=== PATIENT | male | born 1960 | race African-American/Black ===

== ENCOUNTER 2022-10-29 18:17 | Inpatient (IN) | payer MEDICARE ==
[~2022-10-29] VITALS: Ht 167.6 cm; Wt 54.0 kg
[2022-10-29] MEDS ORDERED: ONDANSETRON HCL INJ 2MG/ML 2ML 2 MG/ML VIAL ONE (18:46)
[2022-10-29] MEDS ORDERED: SODIUM CHLORIDE 0.9% 1000ML 1,000 ML ONE (18:46)
[2022-10-29] MEDS ORDERED: METOPROLOL TARTRATE INJ 1 MG/ML VIAL ONE ×2 (18:49→18:53)
[2022-10-29] MEDS ORDERED: ASPIRIN 81 MG CHEW TAB ONE (18:49)
[2022-10-29] MEDS ORDERED: LORAZEPAM INJ 2 MG/ML VIAL ONE (18:49)
[2022-10-29] MEDS ORDERED: FAMOTIDINE 20 MG/2 ML VIAL IV ONE (18:50)
[2022-10-29] MEDS ORDERED: FAMOTIDINE 20 MG/2 ML VIAL IV STA (18:56)
[2022-10-29] MEDS ORDERED: ASPIRIN 325 MG TAB PO ONE (19:00)
[2022-10-29] MEDS ORDERED: SODIUM CHLORIDE 0.9% 1000ML 1,000 ML IV SCH (19:00)
[2022-10-29] MEDS ORDERED: ONDANSETRON HCL INJ 2MG/ML 2ML 2 MG/ML VIAL IV STA (19:09)
[2022-10-29] MEDS ORDERED: LORAZEPAM INJ 2 MG/ML VIAL IV ONE (19:15)
[2022-10-29] MEDS ORDERED: METOPROLOL TARTRATE INJ 1 MG/ML VIAL IV ONE (19:15)
[2022-10-29] MEDS ORDERED: NICARDIPINE 20MG/200ML PREMIX 200 ML ONE (20:17)
[2022-10-29] MEDS ORDERED: NICARDIPINE 20MG/200ML PREMIX 200 ML IV SCH (20:30)
[2022-10-29] MEDS ORDERED: IOPAMIDOL 370 MG/ML 100 ML INFUS..BTL INJ ONE (20:56)
[2022-10-29] MEDS ORDERED: ONDANSETRON HCL INJ 2MG/ML 2ML 2 MG/ML VIAL IV PRN (21:30)
[2022-10-29] MEDS: LORAZEPAM INJ 2 MG/ML VIAL IV SCH (23:38)
[2022-10-29] MEDS: CHLORDIAZEPOXIDE HCL 25 MG CAP PO SCH (23:39)
[2022-10-29] MEDS: SODIUM CHLORIDE 0.9% 1000ML 1,000 ML IV SCH (23:57)
[2022-10-30] VITALS (10 sets, daily range): BP systolic 143–171; BP diastolic 77–94
[2022-10-30] MEDS: LORAZEPAM INJ 2 MG/ML VIAL IV SCH ×4 (05:25→23:46)
[2022-10-30] MEDS: CHLORDIAZEPOXIDE HCL 25 MG CAP PO SCH ×4 (05:25→23:45)
[2022-10-30] MEDS: SODIUM CHLORIDE 0.9% 1000ML 1,000 ML IV SCH ×3 (05:26→20:59)
[2022-10-30] MEDS ORDERED: HYDRALAZINE HCL 20 MG/ML VIAL IV PRN (07:15)
[2022-10-30 07:22] LABS: BASOPHILS # (AUTO) 0.1 (0.0-0.1); BASOPHILS % 0.7 % (0.0-1.0); EOSINOPHILS # (AUTO) 0.1 (0.0-0.4); EOSINOPHILS % 1.3 % (0.0-6.0); HEMATOCRIT 38.7 % (38.2-49.6); HEMOGLOBIN 13.6 g/dL (14.0-18.0); LYMPHOCYTES # (AUTO) 1.4 (1.0-3.2); LYMPHOCYTES % 18.7 % (18.0-39.1); MEAN CORPUSCULAR HEMOGLOBIN 33.9 pg (28-32); MEAN CORPUSCULAR HGB CONC 35.1 g/dL (31-35); MEAN CORPUSCULAR VOLUME 96.5 fL (81-99); MONOCYTES # (AUTO) 0.6 (0.2-0.8); MONOCYTES % 8.3 % (4.4-11.3); NEUTROPHILS # (AUTO) 5.4 (2.1-6.9); NEUTROPHILS % 70.9 % (38.7-80.0); PLATELET COUNT 99 x10e3/uL (140-360); RED BLOOD COUNT 4.01 x10e6/uL (4.3-5.7); RED CELL DISTRIBUTION WIDTH 14.3 % (11.7-14.4)
[2022-10-30 07:58] LABS: ALBUMIN 4.2 g/dL (3.5-5.0); ALBUMIN/GLOBULIN RATIO 1.2 (0.8-2.0); ANION GAP 16.7 mmol/L (8-16); CALCIUM 9.4 mg/dL (8.4-10.2); CREATININE, SERUM 0.79 mg/dL (0.72-1.25); POTASSIUM 3.7 mmol/L (3.5-5.1)
[2022-10-30] MEDS: AMLODIPINE BESYLATE 10 MG TAB PO SCH (08:49)
[2022-10-31] VITALS (8 sets, daily range): BP systolic 140–159; BP diastolic 75–91
[2022-10-31] MEDS: CHLORDIAZEPOXIDE HCL 25 MG CAP PO SCH ×3 (05:20→17:22)
[2022-10-31] MEDS: LORAZEPAM INJ 2 MG/ML VIAL IV SCH (05:22)
[2022-10-31 06:15] LABS: BASOPHILS % 0.7 % (0.0-1.0); EOSINOPHILS # (AUTO) 0.3 (0.0-0.4); EOSINOPHILS % 4.5 % (0.0-6.0); HEMATOCRIT 38.2 % (38.2-49.6); HEMOGLOBIN 13.2 g/dL (14.0-18.0); LYMPHOCYTES # (AUTO) 1.2 (1.0-3.2); LYMPHOCYTES % 20.6 % (18.0-39.1); MEAN CORPUSCULAR HEMOGLOBIN 34.3 pg (28-32); MEAN CORPUSCULAR HGB CONC 34.6 g/dL (31-35); MEAN CORPUSCULAR VOLUME 99.2 fL (81-99); MONOCYTES # (AUTO) 0.4 (0.2-0.8); MONOCYTES % 6.4 % (4.4-11.3); NEUTROPHILS % 67.6 % (38.7-80.0); PLATELET COUNT 101 x10e3/uL (140-360); RED BLOOD COUNT 3.85 x10e6/uL (4.3-5.7); RED CELL DISTRIBUTION WIDTH 13.6 % (11.7-14.4)
[2022-10-31] MEDS: SODIUM CHLORIDE 0.9% 1000ML 1,000 ML IV SCH (06:21)
[2022-10-31 06:32] LABS: ALBUMIN 3.7 g/dL (3.5-5.0); ALBUMIN/GLOBULIN RATIO 1.1 (0.8-2.0); ANION GAP 17.3 mmol/L (8-16); CALCIUM 8.7 mg/dL (8.4-10.2); CREATININE, SERUM 0.71 mg/dL (0.72-1.25); POTASSIUM 3.3 mmol/L (3.5-5.1)
[2022-10-31] MEDS: AMLODIPINE BESYLATE 10 MG TAB PO SCH (09:00)
[2022-10-31] MEDS ORDERED: POTASSIUM CHLORIDE 20MEQ/100ML 200 ML IV ONE (09:00)
[2022-10-31] MEDS ORDERED: CHLORDIAZEPOXID25 MG PO (14:20)
[2022-10-31] MEDS: LORAZEPAM INJ 2 MG/ML VIAL IV PRN (22:17)
[2022-11-01] VITALS (7 sets, daily range): BP systolic 117–160; BP diastolic 83–104
[2022-11-01] MEDS: CHLORDIAZEPOXIDE HCL 25 MG CAP PO SCH ×6 (00:48→21:36)
[2022-11-01] MEDS: LORAZEPAM INJ 2 MG/ML VIAL IV PRN ×2 (02:44→21:38)
[2022-11-01 07:18] LABS: BASOPHILS % 0.5 % (0.0-1.0); EOSINOPHILS # (AUTO) 0.2 (0.0-0.4); EOSINOPHILS % 3.4 % (0.0-6.0); HEMATOCRIT 38.7 % (38.2-49.6); HEMOGLOBIN 13.4 g/dL (14.0-18.0); LYMPHOCYTES # (AUTO) 1.3 (1.0-3.2); LYMPHOCYTES % 22.2 % (18.0-39.1); MEAN CORPUSCULAR HGB CONC 34.6 g/dL (31-35); MEAN CORPUSCULAR VOLUME 98.2 fL (81-99); MONOCYTES # (AUTO) 0.4 (0.2-0.8); MONOCYTES % 7.1 % (4.4-11.3); NEUTROPHILS # (AUTO) 3.7 (2.1-6.9); NEUTROPHILS % 66.4 % (38.7-80.0); PLATELET COUNT 119 x10e3/uL (140-360); RED BLOOD COUNT 3.94 x10e6/uL (4.3-5.7); RED CELL DISTRIBUTION WIDTH 13.2 % (11.7-14.4)
[2022-11-01 07:41] LABS: ALBUMIN 3.8 g/dL (3.5-5.0); ANION GAP 16.7 mmol/L (8-16); CALCIUM 9.9 mg/dL (8.4-10.2); CREATININE, SERUM 0.75 mg/dL (0.72-1.25); POTASSIUM 3.7 mmol/L (3.5-5.1)
[2022-11-01] MEDS: AMLODIPINE BESYLATE 10 MG TAB PO SCH (09:12)
[2022-11-02] VITALS (8 sets, daily range): BP systolic 109–130; BP diastolic 75–87
[2022-11-02] MEDS: CHLORDIAZEPOXIDE HCL 25 MG CAP PO SCH ×3 (05:33→16:53)
[2022-11-02 06:27] LABS: BASOPHILS % 0.7 % (0.0-1.0); EOSINOPHILS # (AUTO) 0.3 (0.0-0.4); EOSINOPHILS % 5.1 % (0.0-6.0); HEMATOCRIT 38.2 % (38.2-49.6); HEMOGLOBIN 13.6 g/dL (14.0-18.0); LYMPHOCYTES # (AUTO) 1.5 (1.0-3.2); LYMPHOCYTES % 26.4 % (18.0-39.1); MEAN CORPUSCULAR HEMOGLOBIN 34.1 pg (28-32); MEAN CORPUSCULAR HGB CONC 35.6 g/dL (31-35); MEAN CORPUSCULAR VOLUME 95.7 fL (81-99); MONOCYTES # (AUTO) 0.5 (0.2-0.8); MONOCYTES % 8.9 % (4.4-11.3); NEUTROPHILS # (AUTO) 3.2 (2.1-6.9); NEUTROPHILS % 58.7 % (38.7-80.0); PLATELET COUNT 134 x10e3/uL (140-360); RED BLOOD COUNT 3.99 x10e6/uL (4.3-5.7); RED CELL DISTRIBUTION WIDTH 13.3 % (11.7-14.4)
[2022-11-02 06:45] LABS: ALBUMIN 3.8 g/dL (3.5-5.0); ALBUMIN/GLOBULIN RATIO 1.1 (0.8-2.0); ANION GAP 13.3 mmol/L (8-16); CREATININE, SERUM 0.82 mg/dL (0.72-1.25); POTASSIUM 3.3 mmol/L (3.5-5.1)
[2022-11-02] MEDS: LORAZEPAM INJ 2 MG/ML VIAL IV PRN (07:46)
[2022-11-02] MEDS: AMLODIPINE BESYLATE 10 MG TAB PO SCH (07:46)
[2022-11-02] MEDS ORDERED: POTASSIUM CHLORIDE 20 MEQ TAB CR PO ONE (10:00)
[2022-11-02] MEDS ORDERED: THIAMINE HCL INJ 100 MG/ML 2ML VIAL IV ONE (11:00)
[2022-11-03] VITALS: BP 109/72
[2022-11-03 04:00] VITALS: BP 116/81
[2022-11-03 06:20] LABS: BASOPHILS # (AUTO) 0.1 (0.0-0.1); EOSINOPHILS # (AUTO) 0.3 (0.0-0.4); HEMATOCRIT 37.8 % (38.2-49.6); HEMOGLOBIN 13.6 g/dL (14.0-18.0); LYMPHOCYTES # (AUTO) 1.4 (1.0-3.2); LYMPHOCYTES % 25.7 % (18.0-39.1); MEAN CORPUSCULAR HEMOGLOBIN 35.9 pg (28-32); MEAN CORPUSCULAR VOLUME 99.7 fL (81-99); MONOCYTES # (AUTO) 0.4 (0.2-0.8); MONOCYTES % 7.8 % (4.4-11.3); NEUTROPHILS # (AUTO) 3.2 (2.1-6.9); NEUTROPHILS % 60.1 % (38.7-80.0); PLATELET COUNT 156 x10e3/uL (140-360); RED BLOOD COUNT 3.79 x10e6/uL (4.3-5.7); RED CELL DISTRIBUTION WIDTH 13.7 % (11.7-14.4)
[2022-11-03 06:32] LABS: ANION GAP 13.7 mmol/L (8-16); CALCIUM 10.2 mg/dL (8.4-10.2); CREATININE, SERUM 0.81 mg/dL (0.72-1.25); POTASSIUM 3.7 mmol/L (3.5-5.1)
[2022-11-03 07:03] LABS: MAGNESIUM 1.3 MG/DL (1.3-2.1)
[2022-11-03 08:03] VITALS: BP 114/76
[2022-11-03 08:10] VITALS: BP 114/76
[2022-11-03] MEDS: AMLODIPINE BESYLATE 10 MG TAB PO SCH (08:31)
[2022-11-03] MEDS ORDERED: CHLORDIAZEPOXIDE HCL 25 MG CAP PO SCH (09:00)
[2022-11-03] MEDS ORDERED: VITAMIN B-1100 M1 PO (12:13)
[2022-11-03] MEDS ORDERED: NORVASC10 MG PO (12:13)
[2022-11-03 12:18] VITALS: BP 108/76
[2022-11-03] MEDS ORDERED: ONDANSETRON HCL 4 MG ORAL DISINTEGRATING TAB PO PRN (12:30)
[2022-11-03] MEDS ORDERED: CHLORDIAZEPOXID25 MG PO (17:09)
== END 2022-11-03 13:50 | disposition home or self-care (01) | DRG 897 ==
LOC: FSED 18:27 → ERHOLD 21:32 → OBSVTOIN 21:32 → ERHOLD 22:16 → MED/SURG3 23:30
PROVIDERS: ADMIT Internal Medicine; ATTEND Internal Medicine
DX: F10.139 Alcohol abuse with withdrawal, unspecified (principal); I16.0 Hypertensive urgency; I10 Essential (primary) hypertension; I25.10 Atherosclerotic heart disease of native coronary artery without angina pectoris; F17.200 Nicotine dependence, unspecified, uncomplicated; K40.90 Unilateral inguinal hernia, without obstruction or gangrene, not specified as recurrent; D69.6 Thrombocytopenia, unspecified; D75.89 Other specified diseases of blood and blood-forming organs; E87.6 Hypokalemia; Z20.822 Contact with and (suspected) exposure to COVID-19; Z86.73 Personal history of transient ischemic attack (TIA), and cerebral infarction without residual deficits; Z96.659 Presence of unspecified artificial knee joint
CPT/HCPCS: 36415; 70450; 71045; 71260; 74177; 80048; 80053; 81003; 82553; 82607; 83735; 84100; 84425; 84484; 85025; 93005; 99284; J2060; J2405; J3411; J3480; J7030; Q9967